=== PATIENT | female | born 1980 | race Caucasian/White ===

== ENCOUNTER 2022-01-09 12:14 | Emergency (ER) | payer OTHER ==
[~2022-01-09] VITALS: Ht 165.1 cm; Wt 81.8 kg
[2022-01-09] MEDS ORDERED: SODIUM CHLORIDE 0.9% 1,000 ML IV ONE (14:15)
[2022-01-09 15:01] LABS: EOSINOPHILS % (AUTO) 0.9 % (1.0-6.0); HEMATOCRIT 41.9 % (36-46); HEMOGLOBIN 13.8 g/dL (12.0-16.0); LYMPHOCYTES # (AUTO) 3.4 K/uL (1.0-4.8); LYMPHOCYTES % (AUTO) 28.8 % (22.0-44.0); MEAN CORPUSCULAR HEMOGLOBIN 28.6 pg (26.0-34.0); MEAN CORPUSCULAR HGB CONC 32.9 G/dL (31.0-37.0); MEAN CORPUSCULAR VOLUME 87 fL (80-100); MONOCYTES # (AUTO) 0.9 K/uL (0.1-1.0); MONOCYTES % (AUTO) 7.5 % (2.0-9.0); NEUTROPHILS # (AUTO) 7.4 K/uL (1.8-7.7); NEUTROPHILS % (AUTO) 61.8 % (40.0-70.0); PLATELET COUNT (AUTO) 416 K/uL (150-450); RED BLOOD CELL COUNT(AUTO) 4.81 MIL/uL (4.00-5.20); RED CELL DISTRIBUTION WIDTH 13.4 % (11.5-14.5)
[2022-01-09 15:07] LABS: ANION GAP 12 mmol/L (8-16); CALCIUM, TOTAL 9.2 mg/dL (8.8-10.5); CARBON DIOXIDE 24 mmol/L (22-29); CHLORIDE 103 mmol/L (98-107); GLUCOSE,RANDOM 88 mg/dL (70-110); SODIUM SERUM 139 mmol/L (136-145); UREA NITROGEN, BLOOD 9 mg/dL (7-18)
[2022-01-09 15:11] LABS: GLOMERULAR FILTR. RATE CALC > 60 mL/min (>60); POTASSIUM 2.7 mmol/L (3.5-5.1)
[2022-01-09] MEDS ORDERED: POTASSIUM CHLORIDE 20 MEQ ER TABLET PO ONE (15:15)
[2022-01-09 16:19] VITALS: BP 115/60
== END 2022-01-09 17:10 | disposition home or self-care (01) ==
LOC: EMS 12:16
DX: R07.89 Other chest pain (principal); E87.6 Hypokalemia; F15.90 Other stimulant use, unspecified, uncomplicated; F31.9 Bipolar disorder, unspecified; Z88.5 Allergy status to narcotic agent; Z88.8 Allergy status to other drugs, medicaments and biological substances
CPT/HCPCS: 99285; 96360; 71045; 80048; 84484; 85025; 36415; 93005; J7030

== ENCOUNTER 2023-03-13 12:49 | Inpatient (IN) | payer MEDICAID, OTHER ==
[~2023-03-13] VITALS: Ht 165.1 cm; Wt 72.6 kg
[2023-03-13] MEDS ORDERED: LAMO-24 PO (13:49)
[2023-03-13] MEDS ORDERED: SERT-439 PO (13:49)
[2023-03-13] MEDS ORDERED: HYDR-4527 PO (13:49)
[2023-03-13 14:18] LABS: APPEARANCE,URINE CLEAR (CLEAR); BILIRUBIN,URINE NEGATIVE (NEGATIVE); COLOR,URINE COLORLESS (YELLOW); GLUCOSE, URINE (UA) NEGATIVE (NEGATIVE); KETONES,URINE NEGATIVE (NEGATIVE); LEUKOCYTE ESTERASE ,URINE TRACE (NEGATIVE); NITRATE,URINE NEGATIVE (NEGATIVE); OCCULT BLOOD,URINE LARGE (NEGATIVE); PROTEIN,URINE NEGATIVE (NEGATIVE); SPECIFIC GRAVITIY, URINE 1.004 (1.003-1.030); UROBILINOGEN,URINE <=1.0 mg/dL (<=1.0)
[2023-03-13 14:24] LABS: AMPHET/METH SCREEN,URINE NEGATIVE (NEGATIVE); BARBITURATE SCREEN, URINE NEGATIVE (NEGATIVE); BENZODIAZEPINES SCREEN,URINE NEGATIVE (NEGATIVE); CANNABINOID SCREEN,URINE NEGATIVE (NEGATIVE); COCAINE SCREEN,URINE NEGATIVE (NEGATIVE); METHADONE SCREEN, URINE NEGATIVE (NEGATIVE); OPIATE SCREEN,URINE NEGATIVE (NEGATIVE); PHENCYCLIDINE SCREEN,URINE NEGATIVE (NEGATIVE)
[2023-03-13 14:25] LABS: ALCOHOL, URINE DRUG SCREEN NEGATIVE (NEGATIVE)
[2023-03-13 14:29] LABS: BASOPHILS % (AUTO) 0.7 % (0.0-2.0); EOSINOPHILS % (AUTO) 3.3 % (1.0-6.0); HEMATOCRIT 38.5 % (36-46); HEMOGLOBIN 13.1 g/dL (12.0-16.0); LYMPHOCYTES # (AUTO) 2.3 K/uL (1.0-4.8); LYMPHOCYTES % (AUTO) 28.1 % (22.0-44.0); MEAN CORPUSCULAR HEMOGLOBIN 30.3 pg (26.0-34.0); MEAN CORPUSCULAR HGB CONC 33.9 G/dL (31.0-37.0); MEAN CORPUSCULAR VOLUME 89 fL (80-100); MONOCYTES # (AUTO) 0.4 K/uL (0.1-1.0); MONOCYTES % (AUTO) 5.1 % (2.0-9.0); NEUTROPHILS # (AUTO) 5.1 K/uL (1.8-7.7); NEUTROPHILS % (AUTO) 62.8 % (40.0-70.0); PLATELET COUNT (AUTO) 346 K/uL (150-450); RED BLOOD CELL COUNT(AUTO) 4.31 MIL/uL (4.00-5.20); RED CELL DISTRIBUTION WIDTH 13.2 % (11.5-14.5); WHITE BLOOD COUNT (AUTO) 8.1 K/uL (4.5-11.0)
[2023-03-13 14:37] LABS: ANION GAP 8 mmol/L (8-16); CARBON DIOXIDE 29 mmol/L (22-29); CHLORIDE 106 mmol/L (98-107); CREATININE 0.78 mg/dL (0.60-1.30); GLUCOSE,RANDOM 80 mg/dL (70-110); POTASSIUM 3.7 mmol/L (3.5-5.1); SODIUM SERUM 143 mmol/L (136-145); UREA NITROGEN, BLOOD 10 mg/dL (7-18)
[2023-03-13 14:38] LABS: CALCIUM, TOTAL 9.3 mg/dL (8.8-10.5); GLOMERULAR FILTR. RATE CALC > 60 mL/min (>60)
[2023-03-13 14:44] LABS: ALANINE AMINOTRANSFERASE 15 U/L (12-78); ALBUMIN 3.7 g/dL (3.4-5.0); ALKALINE PHOSPHATASE 84 U/L (46-116); ASPARTATE AMINOTRANSFERASE 13 U/L (15-37); BILIRUBIN,TOTAL 0.3 mg/dL (0.1-1.0); TOTAL PROTEIN, SERUM 7.3 g/dL (6.4-8.2)
[2023-03-13 14:47] LABS: ALCOHOL, BLOOD (SERUM) < 3 mg/dL (0-10)
[2023-03-13 14:52] LABS: ACETAMINOPHEN < 2 mcg/mL (10-30)
[2023-03-13 14:53] LABS: SALICYLATE 2.6 mg/dL (2.8-20.0)
[2023-03-13 15:04] LABS: COVID AG,FIA SOURCE NASAL SWAB
[2023-03-13 15:08] LABS: BACTERIA,URINE None Seen /HPF (None Seen); SQUAMOUS EPITHELIAL CELL,UR Few /LPF (None Seen); WBC,URINE 0-2 /HPF (0-5)
[2023-03-13 15:52] LABS: SARS-COV2 (COVID) ANTIGEN,FIA Negative (Negative)
[2023-03-13] MEDS: LORazepam 2 MG TABLET PO PRN (19:55)
[2023-03-13] MEDS: HALOPERIDOL 5 MG TABLET PO PRN (19:55)
[2023-03-13] MEDS ORDERED: ACETAMINOPHEN 500 MG TABLET PO ONE (20:00)
[2023-03-13 22:00] VITALS: BP 105/72; PULSE 65; RESP 20; TEMP 97.8
[2023-03-14 00:29] VITALS: BP 105/72; PULSE 65; RESP 19; TEMP 97.8; O2SAT 98
[2023-03-14] MEDS ORDERED: BENZOCAINE/MENTHOL LOZENGE PO PRN (05:45)
[2023-03-14] MEDS ORDERED: LOPERAMIDE HCL 2 MG CAPSULE PO PRN (05:45)
[2023-03-14] MEDS ORDERED: BACITRACIN 28 GM OINTMENT TP PRN (05:45)
[2023-03-14] MEDS ORDERED: OMEPRAZOLE 20 MG CAPSULE PO PRN (05:45)
[2023-03-14] MEDS ORDERED: DOCUSATE SODIUM 100 MG CAPSULE PO PRN (05:45)
[2023-03-14] MEDS ORDERED: MAGNESIUM HYDROXIDE SUSPENSION 30 ML UDCUP PO PRN (05:45)
[2023-03-14] MEDS ORDERED: ONDANSETRON HCL 4 MG TABLET PO PRN (05:45)
[2023-03-14] MEDS ORDERED: ACETAMINOPHEN 325 MG TABLET PO PRN (05:45)
[2023-03-14] MEDS ORDERED: CloNIDine HCL 0.1 MG TABLET PO PRN (05:45)
[2023-03-14] MEDS ORDERED: PETROLATUM,WHITE 28 GM JELLY TP PRN (05:45)
[2023-03-14] MEDS ORDERED: MAG HYDROX/ALUMINUM HYD/SIMETH ES 30 ML SUSPENSION UDCUP PO PRN (05:45)
[2023-03-14] MEDS ORDERED: ALBUTEROL SULFATE HFA 90 MCG/PUFF 8 GM INHALER IH PRN (05:45)
[2023-03-14 09:34] VITALS: BP 90/58; PULSE 61; RESP 16; TEMP 97.8
[2023-03-14] MEDS: CITALOPRAM HYDROBROMIDE 20 MG TABLET PO SCH (11:56)
[2023-03-14] MEDS: NICOTINE 21 MG/24 HOUR PATCH TD SCH (11:57)
[2023-03-14] MEDS: LORazepam 2 MG TABLET PO PRN (14:51)
[2023-03-14] MEDS: DIVALPROEX SODIUM 500 MG DR TABLET PO SCH (16:08)
[2023-03-14 21:06] VITALS: BP 93/50; PULSE 70; RESP 18; TEMP 98.1
[2023-03-15 08:26] VITALS: BP 104/58; PULSE 81; RESP 17; TEMP 97
[2023-03-15] MEDS: CITALOPRAM HYDROBROMIDE 20 MG TABLET PO SCH (08:26)
[2023-03-15] MEDS: NICOTINE 21 MG/24 HOUR PATCH TD SCH (08:26)
[2023-03-15] MEDS: DIVALPROEX SODIUM 500 MG DR TABLET PO SCH ×2 (08:26→15:47)
[2023-03-15] MEDS: IBUPROFEN 600 MG TABLET PO PRN (08:26)
[2023-03-15 09:26] VITALS: BP 111/61; PULSE 71; RESP 18; TEMP 98
[2023-03-15] MEDS: LORazepam 2 MG TABLET PO PRN (15:47)
[2023-03-15 20:31] VITALS: BP 119/81; PULSE 62; RESP 18; TEMP 98.2
[2023-03-16] MEDS: ZOLPIDEM TARTRATE 10 MG TABLET PO PRN ×2 (00:30→21:03)
[2023-03-16] MEDS: CITALOPRAM HYDROBROMIDE 20 MG TABLET PO SCH (10:07)
[2023-03-16] MEDS: NICOTINE 21 MG/24 HOUR PATCH TD SCH (10:07)
[2023-03-16] MEDS: DIVALPROEX SODIUM 500 MG DR TABLET PO SCH ×2 (10:07→16:21)
[2023-03-16 14:06] VITALS: BP 98/61; PULSE 78; RESP 18; TEMP 97.7
[2023-03-16] MEDS: IBUPROFEN 600 MG TABLET PO PRN (15:38)
[2023-03-16 15:40] VITALS: BP 104/65; PULSE 80; RESP 18; TEMP 98.2
[2023-03-16 16:40] VITALS: BP 99/66; RESP 18; TEMP 98.2
[2023-03-16 20:40] VITALS: BP 92/70; PULSE 85; RESP 18; TEMP 98.3
[2023-03-17] MEDS: DIVALPROEX SODIUM 500 MG DR TABLET PO SCH ×2 (09:01→16:14)
[2023-03-17] MEDS: CITALOPRAM HYDROBROMIDE 20 MG TABLET PO SCH (09:01)
[2023-03-17] MEDS: NICOTINE 21 MG/24 HOUR PATCH TD SCH (09:02)
[2023-03-17 10:01] VITALS: BP 120/81; PULSE 76; RESP 18; TEMP 98.1
[2023-03-17] MEDS: LORazepam 2 MG TABLET PO PRN (16:19)
[2023-03-17 21:43] VITALS: BP 97/89; PULSE 66; RESP 18; TEMP 98.4
[2023-03-18 09:12] VITALS: BP 105/72; PULSE 84; RESP 19; TEMP 97.3
[2023-03-18] MEDS: CITALOPRAM HYDROBROMIDE 20 MG TABLET PO SCH (09:19)
[2023-03-18] MEDS: DIVALPROEX SODIUM 500 MG DR TABLET PO SCH ×2 (09:19→16:32)
[2023-03-18] MEDS: NICOTINE 21 MG/24 HOUR PATCH TD SCH (09:19)
[2023-03-18] MEDS: HALOPERIDOL 5 MG TABLET PO PRN (18:49)
[2023-03-18 20:13] VITALS: BP 96/54; PULSE 78; RESP 18; TEMP 98.4
[2023-03-18] MEDS: ZOLPIDEM TARTRATE 10 MG TABLET PO PRN (21:11)
[2023-03-19 08:15] VITALS: BP 103/62; PULSE 80; RESP 18; TEMP 97.8
[2023-03-19] MEDS: DIVALPROEX SODIUM 500 MG DR TABLET PO SCH ×2 (08:36→16:16)
[2023-03-19] MEDS: CITALOPRAM HYDROBROMIDE 20 MG TABLET PO SCH (08:36)
[2023-03-19] MEDS: NICOTINE 21 MG/24 HOUR PATCH TD SCH (08:36)
[2023-03-19] MEDS: ZOLPIDEM TARTRATE 10 MG TABLET PO PRN (21:03)
[2023-03-19 21:52] VITALS: BP 107/70; PULSE 76; RESP 18; TEMP 97.5
[2023-03-20 08:30] VITALS: BP 96/60; PULSE 78; RESP 18; TEMP 97.5
[2023-03-20] MEDS: CITALOPRAM HYDROBROMIDE 20 MG TABLET PO SCH (08:48)
[2023-03-20] MEDS: DIVALPROEX SODIUM 500 MG DR TABLET PO SCH ×2 (08:48→16:21)
[2023-03-20] MEDS: NICOTINE 21 MG/24 HOUR PATCH TD SCH (08:49)
[2023-03-20] MEDS: LORazepam 2 MG TABLET PO PRN (16:22)
[2023-03-20 21:09] VITALS: BP 117/64; PULSE 83; RESP 19; TEMP 96.7
[2023-03-20] MEDS: HALOPERIDOL 5 MG TABLET PO PRN (21:11)
[2023-03-21 08:00] VITALS: BP 99/59; PULSE 85; RESP 18; TEMP 97.3
[2023-03-21] MEDS: CITALOPRAM HYDROBROMIDE 20 MG TABLET PO SCH (09:12)
[2023-03-21] MEDS: DIVALPROEX SODIUM 500 MG DR TABLET PO SCH (09:12)
[2023-03-21] MEDS: NICOTINE 21 MG/24 HOUR PATCH TD SCH (09:12)
[2023-03-21] MEDS ORDERED: CITA-144 PO (13:48)
[2023-03-21] MEDS ORDERED: DIVA-112 PO (13:48)
[2023-03-21] MEDS: HALOPERIDOL 5 MG TABLET PO PRN (13:51)
== END 2023-03-21 14:15 | disposition home or self-care (01) | DRG 753 ==
LOC: EMS 12:49 → 3EI 20:15
PROVIDERS: ADMIT Psychiatry & Neurology Psychiatry; ATTEND Psychiatry & Neurology Psychiatry
DX: F31.9 Bipolar disorder, unspecified (principal); R45.851 Suicidal ideations; F15.10 Other stimulant abuse, uncomplicated; F41.9 Anxiety disorder, unspecified; G47.00 Insomnia, unspecified; Z20.822 Contact with and (suspected) exposure to COVID-19; T50.902A Poisoning by unspecified drugs, medicaments and biological substances, intentional self-harm, initial encounter; K59.00 Constipation, unspecified; Z72.0 Tobacco use; Z91.51 Personal history of suicidal behavior; Z79.899 Other long term (current) drug therapy; Z88.5 Allergy status to narcotic agent; Z90.49 Acquired absence of other specified parts of digestive tract; Z98.51 Tubal ligation status; Y92.89 Other specified places as the place of occurrence of the external cause
CPT/HCPCS: 80053; 80164; 80307; 81001; 84703; 85025; 93005; 99291; G0480; G0481; Q0162